=== PATIENT | female | born 1970 | race American Indian/Alaskan Native ===

== ENCOUNTER → 2018-04-28 | Outpatient (CLI) | payer OTHER | END | disposition home or self-care (01) | LOC: PLD 15:05 → LAB SHORT 15:05 | DX: C53.9 Malignant neoplasm of cervix uteri, unspecified (principal); C54.1 Malignant neoplasm of endometrium | CPT/HCPCS: 88305 ==

== ENCOUNTER 2018-12-21 07:16 | Day surgery (SDC) | payer OTHER ==
[2018-12-20 10:25] LABS: BASOPHILS ABSOLUTE AUTO 0.01 K/mm3 (0.00-0.23); BASOPHILS PERCENT AUTO 0 % (0-2); Hemoglobin 6.9 g/dL (11.5-16.0); LYMPHOCYTES ABSOLUTE AUTO 0.38 K/mm3 (0.84-5.20); LYMPHOCYTES PERCENT AUTO 12 % (21-46); MONOCYTES ABSOLUTE AUTO 0.22 K/mm3 (0.16-1.47); MONOCYTES PERCENT AUTO 7 % (4-13); Mean Corpuscular HGB 27.3 pg (26.0-34.0); Mean Platelet Volume 9.6 fL (9.1-12.4); Platelet Count 131 K/mm3 (150-400); RDW Coefficient Variation 18.7 % (11.7-14.2); RDW Standard Deviation 62.3 fL (35.1-46.3); Red Blood Cell Count 2.53 M/mm3 (3.80-5.20); White Blood Cell Count 3.16 K/mm3 (4.00-11.30)
[2018-12-20 10:44] LABS: EOSINOPHILS PERCENT AUTO 0 % (0-6); IMMATURE GRAN ABSOLUTE AUTO 0.01 K/mm3 (0.00-0.10); IMMATURE GRAN PERCENT AUTO 0 % (0-1); Mean Corpuscular Volume 91 fL (80-100); NEUTROPHILS ABSOLUTE AUTO 2.54 K/mm3 (1.96-9.15); NEUTROPHILS PERCENT AUTO 80 % (41-73)
[2018-12-20 11:15] LABS: Alanine Aminotransfer (ALT/SGP 23 U/L (12-78); Albumin, Blood 2.5 g/dL (3.4-5.0); Albumin/Globulin Ratio 0.5 (0.8-1.8); Alk Phos 83 U/L (50-136); Anion Gap 10 mmol/L (6-16); Aspartate Aminotrans (AST/SGOT 30 U/L (12-37); Bilirubin, Total 0.4 mg/dL (0.1-1.0); Blood Urea Nitrogen 6 mg/dL (8-24); Bun/Creatinine Ratio 12.1 (12.0-20.0); CO2, Blood 23 mmol/L (21-32); Calcium, Blood 8.4 mg/dL (8.5-10.1); Chloride, Blood 104 mmol/L (98-108); Globulin, Blood 5.5 g/dL (2.2-4.0); Glomerular Filtration Rate >60 (60-); Glucose, Blood 123 mg/dL (70-99); Potassium, Blood 3.5 mmol/L (3.5-5.5); Sodium, Blood 137 mmol/L (136-145)
[2018-12-21] MEDS ORDERED: Ondansetron Odt8 MG PO (08:52)
[2018-12-21] MEDS ORDERED: MEDR10 PO (08:53)
[2018-12-21] MEDS ORDERED: OXYC5 PO (08:53)
[2018-12-21] MEDS ORDERED: LEVO750 PO (14:51)
== END 2018-12-21 16:47 | disposition home or self-care (01) ==
LOC: ATC 07:16 → EDSTATUS 13:30 → ATC 16:47
PROVIDERS: Internal Medicine Hematology & Oncology
DX: C53.8 Malignant neoplasm of overlapping sites of cervix uteri (principal); C78.7 Secondary malignant neoplasm of liver and intrahepatic bile duct; D63.0 Anemia in neoplastic disease
CPT/HCPCS: 36415; 36430; 80053; 85025; 86850; 86900; 86901; 86923; J7050; P9016

== ENCOUNTER 2019-03-10 06:03 | Day surgery (SDC) | payer OTHER ==
[~2019-03-10] VITALS: Ht 160 cm; Wt 111.0 kg
[~2019-03-10 06:03] MED LIST: LEVO750 PO; MEDR10 PO; OXYC5 PO; Ondansetron Odt8 MG PO; POTA8 PO
--- NOTE | 2019-03-10 07:06 | NUR ---
Ambulatory in Day Surgery Surgical site prepped with 2% Chlorhexidine cloth wipe. History, Chart, Medications and Allergies reviewed before start of procedure.Lungs clear T/O to Auscultation. Patient reports completing Chlorhexadine shower X2 prior to admission to hospital.Patient confirms NPO status and agrees with scheduled surgery. Patient States Post-Procedure ride home has been arranged.
--- NOTE | 2019-03-10 08:34 | NUR ---
Ambulatory in Day Surgery Surgical site prepped with 2% Chlorhexidine cloth wipe. History, Chart, Medications and Allergies reviewed before start of procedure.Lungs clear T/O to Auscultation. Patient States Post-Procedure ride home has been arranged.GLASSES TO PACU.
--- NOTE | 2019-03-10 09:03 | NUR ---
REPORT FROM [facility] PACU/ RN. DRESSING TO RIGHT CHEST CDI. MEDIPORT ACCESSED. PT C/O OF PAIN. HAS PAIN MEDS AT HOME. SPOKE TO DR PITTS. NEW ORDERS FOR PAIN MEDS RECEIVED AND ORDERED VIA COMPUTER. PT PROVIDED FOOD AND FLUID. WILL MANAGE PAIN, VS, DISCHARGE.
--- NOTE | 2019-03-10 09:35 | NUR ---
Patient up to Ambulate independently. Gait steady. Discharge instructions reviewed with patient. Patient verbalizes understanding. Copy given to patient to take home. Patient States Post-Procedure ride home has been arranged. Discharged via wheelchair to private car for ride home. PROVIDED EDUCATION REGARDING MEDIPORT INFORMATION. PROVIDED EMOTIONAL SUPPORT. ALL BELONINGS RETURNED TO PATIENT.
== END 2019-03-10 23:04 | disposition home or self-care (01) ==
LOC: ORSCMMR 06:03 → ORD 07:30 → ORSCMMR 07:30
PROVIDERS: Surgery
PROC: B5131ZA Fluoroscopy of Right Jugular Veins using Low Osmolar Contrast, Guidance (ICD-10-PCS; principal; 2019-03-10 07:30)
PROC: 05HM33Z Insertion of Infusion Device into Right Internal Jugular Vein, Percutaneous Approach (ICD-10-PCS; principal; 2019-03-10 07:30)
DX: C53.8 Malignant neoplasm of overlapping sites of cervix uteri (principal); C78.7 Secondary malignant neoplasm of liver and intrahepatic bile duct; R30.0 Dysuria
CPT/HCPCS: 77001; 81001; 87077; 87086; 87186; C1788; J0690; J1100; J1642; J2250; J2405; J2704; J3010; J7120

== ENCOUNTER → 2019-03-23 | Outpatient (CLI) | payer OTHER ==
[2019-03-23 11:38] LABS: Source, Urine Clean Catch
[2019-03-23 11:55] LABS: Bilirubin, Urine Neg (Neg); Blood, Urine 5+ (Neg); Glucose Qualitative, Urine Neg (Neg); Ketones, Urine 1+ (Neg); Leukocyte Esterase, Urine 3+ (Neg); Nitrite, Urine Neg (Neg); Protein, Urine 3+ (Neg); Specific Gravity, Urine 1.025 (1.003-1.022); Urobilinogen, Urine NORM (Normal)
[2019-03-23 11:57] LABS: Appearance, Urine Cloudy (Clear); Color, Urine Yellow (P-Yellow)
[2019-03-23 12:02] LABS: Red Blood Cells, Urine TNTC /hpf (0-2); White Blood Cells, Urine TNTC /hpf (0-5)
[2019-03-23 12:03] LABS: Bacteria Many /hpf; Squamous Epithelial Cells Rare /hpf (Few)
[2019-03-23 12:04] LABS: Mucus Light (0-Heavy)
== END | disposition home or self-care (01) ==
LOC: LAB 11:36 → LAB SHORT 11:36 → LAB FUT 03-22 18:20
PROVIDERS: Internal Medicine Hematology & Oncology
DX: C53.9 Malignant neoplasm of cervix uteri, unspecified (principal); C54.1 Malignant neoplasm of endometrium; C78.7 Secondary malignant neoplasm of liver and intrahepatic bile duct; D70.1 Agranulocytosis secondary to cancer chemotherapy; T45.1X5A Adverse effect of antineoplastic and immunosuppressive drugs, initial encounter; D69.6 Thrombocytopenia, unspecified; D64.9 Anemia, unspecified; E87.6 Hypokalemia; N39.0 Urinary tract infection, site not specified; R30.0 Dysuria; R50.9 Fever, unspecified; R63.5 Abnormal weight gain
CPT/HCPCS: 81001; 87086

== ENCOUNTER → 2019-05-12 | Outpatient (CLI) | payer OTHER ==
[2019-05-12 11:48] LABS: BASOPHILS ABSOLUTE AUTO 0.01 K/mm3 (0.00-0.23); BASOPHILS PERCENT AUTO 0 % (0-2); EOSINOPHILS PERCENT AUTO 0 % (0-6); Hematocrit 34.2 % (33.0-51.0); Hemoglobin 10.7 g/dL (11.5-16.0); IMMATURE GRAN ABSOLUTE AUTO 0.02 K/mm3 (0.00-0.10); IMMATURE GRAN PERCENT AUTO 0 % (0-1); LYMPHOCYTES ABSOLUTE AUTO 0.67 K/mm3 (0.84-5.20); LYMPHOCYTES PERCENT AUTO 8 % (21-46); MONOCYTES ABSOLUTE AUTO 0.37 K/mm3 (0.16-1.47); MONOCYTES PERCENT AUTO 5 % (4-13); Mean Corpuscular HGB 29.4 pg (26.0-34.0); Mean Corpuscular HGB Conc 31.3 g/dL (31.5-36.5); Mean Corpuscular Volume 94 fL (80-100); Mean Platelet Volume 9.1 fL (9.1-12.4); NEUTROPHILS ABSOLUTE AUTO 6.88 K/mm3 (1.96-9.15); NEUTROPHILS PERCENT AUTO 87 % (41-73); Platelet Count 374 K/mm3 (150-400); RDW Coefficient Variation 17.4 % (11.7-14.2); RDW Standard Deviation 60.6 fL (35.1-46.3); Red Blood Cell Count 3.64 M/mm3 (3.80-5.20); White Blood Cell Count 7.95 K/mm3 (4.00-11.30)
== END | disposition home or self-care (01) ==
LOC: LAB 11:29 → LAB SHORT 11:29
PROVIDERS: Registered Nurse Oncology
DX: D70.1 Agranulocytosis secondary to cancer chemotherapy (principal); T45.1X5A Adverse effect of antineoplastic and immunosuppressive drugs, initial encounter
CPT/HCPCS: 85025

== ENCOUNTER 2020-01-11 15:03 | Inpatient (IN) | payer OTHER ==
[~2020-01-11] VITALS: Ht 162.6 cm; Wt 95.8 kg
[~2020-01-11 15:03] MED LIST changes: +OXYC10TA19 PO; -OXYC5 PO
[2020-01-11] MEDS ORDERED: DEXA4 PO (15:43)
[2020-01-11 16:42] LABS: Beta HCG, Quantitative, Serum 133 mIU/mL (0-3); Troponin I <0.015 ng/mL (0.000-0.040)
--- NOTE | 2020-01-11 18:20 | NUR ---
ED Palliative Care Consult Spoke with Dr Mckinney and discussed case. Pt has cervical cancer with yamileth. Pt would benefit from Palliative Care consult to discuss goals of care. Pt resting on gurny upon arrival. Pt spouse Virgil at bedside. Spouse appears axious and mildly agitated due to Pt's cancer spreading. Pt reports 7/10 pain in her abdomen and back. Engaged in therapeutic discussion regarding goals of care. Listened as Pt reports not tolerating treatment well. Pt and spouse express frustration regarding treatment being switched. They report initial treatment was shrinking tumors and then was switched to new treatment that spouse describes as "making it worse". Answered questions and validated concerns. Pt reports leaning towards wanting to focus on quality and comfort versus treatment but is unsure at this time. Discussed the importance of speaking with Dr Obregon regarding options for treatment in order to make a well informed decision. Educated on hospice as an option if she elects to no longer seek treatment. Educated on hospice philosophy. Pt expresses appreciation of conversation and is agreeable for continued visits. Provided Palliative Care contact information. Reported Pt's pain to ED RN. Palliative Care will F/U for supportive and therapeutic visits.
[2020-01-11 20:19] LABS: International Normalized Ratio 1.21; Prothrombin Time Results 12.8 Sec (9.7-11.5)
[2020-01-12 01:40] LABS: Source, Urine Clean Catch
[2020-01-12 01:44] LABS: Blood, Urine 5+ (Neg); Glucose Qualitative, Urine Neg (Neg); Ketones, Urine 2+ (Neg); Leukocyte Esterase, Urine 2+ (Neg); Nitrite, Urine Pos (Neg); Protein, Urine 3+ (Neg); Urobilinogen, Urine 3+ (Normal)
[2020-01-12 01:48] LABS: Appearance, Urine Hazy (Clear); Bilirubin, Urine 2+ (Neg); Color, Urine Amber (P-Yellow)
[2020-01-12 01:51] LABS: Bacteria Many /hpf; Squamous Epithelial Cells Few /hpf (Few); White Blood Cells, Urine TNTC /hpf (0-5)
[2020-01-12 04:02] LABS: BASOPHILS ABSOLUTE AUTO 0.06 K/mm3 (0.00-0.23); BASOPHILS PERCENT AUTO 0 % (0-2); EOSINOPHILS PERCENT AUTO 0 % (0-6); Hematocrit 28.1 % (33.0-51.0); Hemoglobin 8.6 g/dL (11.5-16.0); IMMATURE GRAN ABSOLUTE AUTO 0.24 K/mm3 (0.00-0.10); IMMATURE GRAN PERCENT AUTO 1 % (0-1); LYMPHOCYTES ABSOLUTE AUTO 1.45 K/mm3 (0.84-5.20); LYMPHOCYTES PERCENT AUTO 5 % (21-46); MONOCYTES ABSOLUTE AUTO 1.95 K/mm3 (0.16-1.47); MONOCYTES PERCENT AUTO 7 % (4-13); Mean Corpuscular HGB 27.3 pg (26.0-34.0); Mean Corpuscular HGB Conc 30.6 g/dL (31.5-36.5); Mean Corpuscular Volume 89 fL (80-100); Mean Platelet Volume 9.1 fL (9.1-12.4); NEUTROPHILS ABSOLUTE AUTO 25.93 K/mm3 (1.96-9.15); NEUTROPHILS PERCENT AUTO 88 % (41-73); NRBC ABSOLUTE 0.03 K/mm3 (0.00-0.02); NRBC Auto 0.1 /100 WBC (0.0-0.2); Platelet Count 369 K/mm3 (150-400); RDW Coefficient Variation 21.8 % (11.7-14.2); RDW Standard Deviation 69.8 fL (35.1-46.3); Red Blood Cell Count 3.15 M/mm3 (3.80-5.20); White Blood Cell Count 29.63 K/mm3 (4.00-11.30)
[2020-01-12 04:26] LABS: Percent Saturation 13.6 % (15.0-50.0)
[2020-01-12 04:27] LABS: Alanine Aminotransfer (ALT/SGP 147 U/L (12-78); Albumin, Blood 2.2 g/dL (3.4-5.0); Anion Gap 10 mmol/L (6-16); Aspartate Aminotrans (AST/SGOT 571 U/L (12-37); Blood Urea Nitrogen 11 mg/dL (8-24); Bun/Creatinine Ratio 14.3 (12.0-20.0); CO2, Blood 20 mmol/L (21-32); Calcium, Blood 7.8 mg/dL (8.5-10.1); Chloride, Blood 104 mmol/L (98-108); Creatinine, Blood 0.77 mg/dL (0.40-1.00); Glomerular Filtration Rate >60 (60-); Glucose, Blood 118 mg/dL (70-99); Magnesium, Blood 2.1 mg/dL (1.6-2.4); Potassium, Blood 4.9 mmol/L (3.5-5.5); Sodium, Blood 134 mmol/L (136-145)
--- NOTE | 2020-01-12 05:27 | NUR ---
SHIFT SUMMARY PT ARRIVED FROM ED APPROXIMATELY @ 2029; PT WAS ABLE TO STAND AND PIVOT SELF TO BED; A&O X4; SPOUSE AT BEDSIDE FOR BRIEF TIME TO DROP OFF BELONGINGS; COMPLIANT W/ CARE AND CALLS APPROPRIATELY; VSS; SINUS TACH NOTED ON TELE; ELEVATES W/ AMBULATION; DENIES CHEST PAIN; O2 SATS >93 ON RA; PT C/O 8 OF 10 PAIN IN ABDOMEN AND BACK; RELIEF MEASURES OFFERED AND PT MEDICATED PER EMAR W/ ROXICODONE; PT INDEPENDENT TO BATHROOM; DARK URINE NOTED IN COLLECTION HAT; CALL LIGHT IN REACH; BED IN LOWEST POSITION; WILL MONITOR UNTIL HAND OFF TO DAY SHIFT RN.
[2020-01-12 05:34] LABS: Albumin/Globulin Ratio 0.6 (0.8-1.8); Alk Phos 571 U/L (50-136); Bilirubin, Total 5.7 mg/dL (0.1-1.0); Globulin, Blood 3.8 g/dL (2.2-4.0)
--- NOTE | 2020-01-12 09:15 | NUR ---
NOTIFIED BY TELE DISPENSARY TECHNICIAN THAT HEART RATE INCREASED TO 120 AT THIS TIME.
--- NOTE | 2020-01-12 09:48 | NUR ---
Dr. Alegria called to notify of lactic acid 2.8; message left on cell phone. She is here now with the patient, and notified of the lactic level.
--- NOTE | 2020-01-12 11:06 | NUR ---
PALLIATIVE CARE CONSULT, DISCUSSED PALLIATIVE CARE WITH PATIENT WHO WAS CONSULTED YESTERDAY WITH ERICK CHRISTIAN. AFTER SPEAKING WITH THE PATIENT IT SEEMS HER FAMILY COULD USE MORE SUPPORT, SPECIFICALLY HER WHO SHE STATES IS STRUGGLING TO COPE WITH HER CANCER DIAGNOSIS. PT ASKED FOR RESOURCES FOR FAMILY SUPPORT, GROUP THERAPY OR COUNSELING OF SOME KIND. THIS WAS PASSED ON TO ERICK CHRISTIAN WITH PALLIATIVE CARE WHOM WILL VISIT THE PT LATER TODAY.
--- NOTE | 2020-01-12 13:53 | NUR ---
Pt resting in bed upon arrival. Engaged in therapeutic listening as Pt expresses frustrations regarding spouse's behavior yesterday. She states her has not processed her condition since finding out about her cancer and yesterday things hit home for him. Validated concerns and answered questions. Discussed plan of care and the importance of planning for the future as the cancer takes its coarse. Pt verbalizes understanding and plans to discuss further with Dr Obregon regarding treatment options. She will then decide is continued treatment is beneficial or transition to hospice. Continued therapeutic listening. Pt expresses appreicaiton of visit and reports no other concerns at this time. Provided Pt with a list of cancer support groups she and her spouse may attend. Palliative Care will remain available.
--- NOTE | 2020-01-12 17:56 | NUR ---
SHIFT SUMMARY PT SPOKE WITH DR HALE THIS MORNING ABOUT HER PLAN. AT THIS POINT IS UNSURE IF THE ELEVATED LAB WORK IS DUE TO CANCER SPREADING OR AN INFECTION AT THIS POINT SHE IS RECEIVING [facility] AND WAITING FOR BLOOD CULTURE RESULTS. THE PT IS UNDERSTANDING OF THE CURRENT PLAN AND CONFIRMED THIS VERBALLY. PT REPORTED HER EYES SEEMING MORE YELLOW THIS AFTERNOON, A QUICK VISUAL ASSESSMENT CONFIRMED THAT THEY ARE SLIGHTLY MORE YELLOW TINTED WHEN COMPARED TO THIS MORNING. DR HALE WAS NOTIFIED, AND WAS AWARE AND CONFIRMED IT WAS EXPECTED DUE TO HER ELEVATED LIVER FUNCTION AND BILIRUBIN. PT VISITED WITH PALLIATIVE CARE TODAY. PT ALSO EXPLAINED THAT SHE FEELS HER HAS BEEN A BIT OVERBEARING REGARDING HER CANCER DIAGNOSIS AND SHE STATED MULTIPLE TIMES "HE NEEDS TO SPEAK WITH SOMEONE, HE NEEDS THERAPY OR SOMETHING." ERICK SMITH MENTIONED THIS TO PALLIATIVE CARE AND REQUESTED THAT RESOURCES BE FOUND FOR CANCER SUPPORT, FAMILY SUPPORT FOR PT AND HER FAMILY MEMBERS. PT HAS FLAVIO HOSE, AND HAS INDEPENDENTLY USING THE BATHROOM THIS AFTERNOON/EVENING; ERICK SMITH WAS WITH HER MULTIPLE TIMES DURING THE MORNING TO ESCORT HER TO THE BATHROOM AND SHE WAS NOT SHOWING WEAKNESS, AND WAS WITH STEADY GAIT. PAIN HAS BEEN MANAGED TODAY WITH OXYCODONE. PT WAS ADVANCED TO FULL LIQUID DIET AT LUNCH TIME AND HAS TOLERATED THIS WELL. PT DENIED NAUSEA ALL DAY.
[2020-01-12 21:26] LABS: Vancomycin, Trough 20.7 ug/mL (5.0-10.0)
--- NOTE | 2020-01-13 06:07 | NUR ---
SHIFT SUMMARY PT A&O X4; DENIES CHEST PAIN; VSS; NSR NOTED ON TELE; HR INCREASE W/ BRP; O2 SATS >93 ON RA; PT STATES SHE HAS SOB W/ AMBULATION; PT SLEPT SEVERAL HOURS THIS SHIFT; JAUNDICE APPEARANCE GREATER THAN PREVIOUS SHIFT, YELLOW SCLERA NOTED; ABX ADMINISTERED PER EMAR; PAIN MANAGED W/ PO ROXYCODONE; CALL LIGHT IN REACH; BED IN LOWEST POSITION; WILL CONTINUE TO MONITOR CLOSELY UNTIL HAND OFF TO DAY SHIFT RN.
[2020-01-13 10:20] LABS: BASOPHILS ABSOLUTE AUTO 0.08 K/mm3 (0.00-0.23); BASOPHILS PERCENT AUTO 0 % (0-2); EOSINOPHILS ABSOLUTE AUTO 0.02 K/mm3 (0.00-0.68); EOSINOPHILS PERCENT AUTO 0 % (0-6); Hematocrit 27.1 % (33.0-51.0); Hemoglobin 8.4 g/dL (11.5-16.0); IMMATURE GRAN ABSOLUTE AUTO 0.28 K/mm3 (0.00-0.10); IMMATURE GRAN PERCENT AUTO 1 % (0-1); LYMPHOCYTES ABSOLUTE AUTO 1.03 K/mm3 (0.84-5.20); LYMPHOCYTES PERCENT AUTO 4 % (21-46); MONOCYTES ABSOLUTE AUTO 1.77 K/mm3 (0.16-1.47); MONOCYTES PERCENT AUTO 6 % (4-13); Mean Corpuscular HGB 27.8 pg (26.0-34.0); Mean Corpuscular Volume 90 fL (80-100); Mean Platelet Volume 9.3 fL (9.1-12.4); NEUTROPHILS ABSOLUTE AUTO 25.44 K/mm3 (1.96-9.15); NEUTROPHILS PERCENT AUTO 89 % (41-73); NRBC ABSOLUTE 0.08 K/mm3 (0.00-0.02); NRBC Auto 0.3 /100 WBC (0.0-0.2); Platelet Count 341 K/mm3 (150-400); RDW Coefficient Variation 22.3 % (11.7-14.2); RDW Standard Deviation 72.2 fL (35.1-46.3); Red Blood Cell Count 3.02 M/mm3 (3.80-5.20); White Blood Cell Count 28.62 K/mm3 (4.00-11.30)
[2020-01-13 10:40] LABS: Alanine Aminotransfer (ALT/SGP 193 U/L (12-78); Albumin/Globulin Ratio 0.5 (0.8-1.8); Alk Phos 579 U/L (50-136); Anion Gap 9 mmol/L (6-16); Aspartate Aminotrans (AST/SGOT 631 U/L (12-37); Bilirubin, Total 6.6 mg/dL (0.1-1.0); Blood Urea Nitrogen 11 mg/dL (8-24); Bun/Creatinine Ratio 14.4 (12.0-20.0); CO2, Blood 20 mmol/L (21-32); Calcium, Blood 8.2 mg/dL (8.5-10.1); Chloride, Blood 102 mmol/L (98-108); Creatinine, Blood 0.76 mg/dL (0.40-1.00); Globulin, Blood 3.9 g/dL (2.2-4.0); Glomerular Filtration Rate >60 (60-); Glucose, Blood 136 mg/dL (70-99); Potassium, Blood 4.6 mmol/L (3.5-5.5); Sodium, Blood 131 mmol/L (136-145); Total Protein, Blood 5.9 g/dL (6.4-8.2)
--- NOTE | 2020-01-13 11:40 | NUR ---
ASSUMED CARE OF PT THIS AM, RECEIVED REPORT FROM ERICK KEYES. PT HAS BEEN ALERT AND ORIENTED, INDEPENDENT IN ROOM, SON AT BEDSIDE. PT CONTINUES TO RECEIVED POTASSIUM CHLORIDE INFUSION AND ABX INFUSION WITHOUT DIFFICULTY. PALLIATIVE CARE CONSULT IN PROGRESS AT THIS TIME.
--- NOTE | 2020-01-13 13:56 | NUR ---
Several supportive visits with Pt today. Spoke with AMMONIUM NITRATE NEUTRALIZER Lynn from Dr Obregon office today. Lynn reports having conversations with Dr Obregon and given to extensive metastatic disease to the liver no other treatment options are available and hospice should be considered. Engaged in therapeutic discussion regarding prognosis and encouraged Pt to express fears and concerns. Educated on hospice and comfort care philosophy with V/U made by Pt. Pt would like to start comfort measures today. Discussed hospice agencies to choose from with Pt choosing [facility]. Offered therapeutic listening as Pt reports no concerns regarding dying and her children. Pt does report concerns regarding her spouse Virgil. Pt reports Virgil has not been understanding or supportive to her since being diagnosed with cancer. Pt reports 's demeanor has changed over the last couple of days and has been more agitated. Pt reports has been causing her stress and does not feel she can deal with him at this time. Dr Alegria in to examine Pt and to discuss plan of care. Dr Alegria answers Pt's questions and is agreeable with decision for comfort care and hospice. Continued therapeutic listening and answered questions. Pt reports children have offered to her to move in with them. Pt tearful at times and this RN offered emotional support. Pt expresses appreciation of visit. Placed comfort care order, comfort care order set, and discontinued maintenance medications per V/O from Dr Alegria. Continued IV antibiotic Zosyn per Dr Alegria until urine culture results. Called Pt's spouse Virgil per request from Pt. Attempted therapeutic conversation and updated plan of care including Pt's choice for comfort care and hospice. Virgil becomes very agitated and does not allow this RN continued conversation with constant interuptions. Virgil states "your just going to let her then"? Attempted to educate on philosophy but Virgil continues to interupt conversation. Virgil hangs up phone. Received called back from Virgil a few minutes later asking to speak with her. Instructed Virgil this RN would find out if Pt is taking calls and Virgil becomes agitated again and states "never mind" and hangs up phone again. Spoke with [facility] Lialorena Johnson and reported Pt's decision for [facility]. Spoke with Forming And Assembling Supervisor Mary, discussed case and concerns. Pt may benefit from remaining in the hospital over the weekend due to family dynamics. Palliative Care will remain available.
--- NOTE | 2020-01-13 14:15 | NUR ---
PT TRANSFERED TO MEDICAL DEPT, REPORT GIVEN TO ERICK CRESPO.
--- NOTE | 2020-01-13 19:43 | NUR ---
SHIFT SUMMARY: NO ACUTE EVENTS SINCE TRANSFER. SPOUSE VISITED FOR < 5 MINUTES THIS EVENING, LEFT ABRUPTLY, APPEARED ANGRY. INFORMED PATIENT THAT IF SPOUSE UPSETS HER AND SHE WANTS HIM TO LEAVE TO CALL RN AND NURSING WILL ASK HIM TO LEAVE OR GET SECURITY INVOLVED IF NECESSARY. C/O ABD PAIN, MEDICATED PER EMAR. DIET CHANGED TO REGULAR, APPETITE POOR. DECLINED TO WEAR FLAVIO HOSE, STATED THEY CAUSE PAIN. SON MARISSA AT BEDSIDE, IS SPENDING THE NIGHT.
[2020-01-14 05:41] LABS: BASOPHILS ABSOLUTE AUTO 0.07 K/mm3 (0.00-0.23); BASOPHILS PERCENT AUTO 0 % (0-2); EOSINOPHILS ABSOLUTE AUTO 0.05 K/mm3 (0.00-0.68); EOSINOPHILS PERCENT AUTO 0 % (0-6); Hematocrit 27.4 % (33.0-51.0); Hemoglobin 8.5 g/dL (11.5-16.0); IMMATURE GRAN ABSOLUTE AUTO 0.24 K/mm3 (0.00-0.10); IMMATURE GRAN PERCENT AUTO 1 % (0-1); LYMPHOCYTES ABSOLUTE AUTO 1.17 K/mm3 (0.84-5.20); LYMPHOCYTES PERCENT AUTO 5 % (21-46); MONOCYTES ABSOLUTE AUTO 1.92 K/mm3 (0.16-1.47); MONOCYTES PERCENT AUTO 8 % (4-13); Mean Corpuscular HGB 27.4 pg (26.0-34.0); Mean Corpuscular Volume 88 fL (80-100); Mean Platelet Volume 9.1 fL (9.1-12.4); NEUTROPHILS ABSOLUTE AUTO 21.42 K/mm3 (1.96-9.15); NEUTROPHILS PERCENT AUTO 86 % (41-73); NRBC ABSOLUTE 0.17 K/mm3 (0.00-0.02); NRBC Auto 0.7 /100 WBC (0.0-0.2); Platelet Count 342 K/mm3 (150-400); RDW Coefficient Variation 22.7 % (11.7-14.2); RDW Standard Deviation 71.7 fL (35.1-46.3); White Blood Cell Count 24.87 K/mm3 (4.00-11.30)
[2020-01-14 06:05] LABS: Alanine Aminotransfer (ALT/SGP 196 U/L (12-78); Albumin, Blood 1.9 g/dL (3.4-5.0); Albumin/Globulin Ratio 0.5 (0.8-1.8); Alk Phos 663 U/L (50-136); Anion Gap 9 mmol/L (6-16); Aspartate Aminotrans (AST/SGOT 577 U/L (12-37); Bilirubin, Total 7.2 mg/dL (0.1-1.0); Blood Urea Nitrogen 12 mg/dL (8-24); Bun/Creatinine Ratio 14.8 (12.0-20.0); CO2, Blood 19 mmol/L (21-32); Calcium, Blood 8.1 mg/dL (8.5-10.1); Chloride, Blood 102 mmol/L (98-108); Creatinine, Blood 0.81 mg/dL (0.40-1.00); Globulin, Blood 3.8 g/dL (2.2-4.0); Glomerular Filtration Rate >60 (60-); Glucose, Blood 104 mg/dL (70-99); Potassium, Blood 4.5 mmol/L (3.5-5.5); Sodium, Blood 130 mmol/L (136-145); Total Protein, Blood 5.7 g/dL (6.4-8.2)
--- NOTE | 2020-01-14 17:07 | NUR ---
Pt resting just had a dose of medication. Patients children at bedside. They had several questions about hospice care plan. They are awaiting a call from their landlord on letting her stay there. Advied we would with their permission an dpatients speak with the landlord if that would help. Advised if pt declines rapitly may not transition her home. They are homeing to bring her home. Advised them on maond care managers will help them pick a company and implment a plan. Review of hospice and both companies. Supportive conversation with children. They both network intelligence analyst and have opposite shifts so they can care for their mother. Suggest a reed for patient upon discharge for comfort and skin protection. was in and out today. He is anxious. will continue supportive visits. Frankie may need a day or tow to set up their jobs and home.
--- NOTE | 2020-01-14 19:24 | NUR ---
Shift Summary Family has been at the bedside throughout the day. There was a moment where patient requested pain meds and asked patient to not take Morphine; however, patient refused to listen to stating she needed it for pain. Morphine given and have been medicating per EMAR for pain and nausea. Otherwise, no new comcerns today. Report given to oncoming Rn.
--- NOTE | 2020-01-15 14:12 | NUR ---
Pt resting will review of needs with nursing. Dr garcia saw family will need support with dischareg plan.
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
--- NOTE | 2020-01-15 17:15 | NUR ---
Shift Summary Patient has had many family visiting today. Transferred from room Med 325 to Med 308 to accomodate for them. Up to bathroom x 1-2 assist c FWW. Patient appears increasingly weak and took over one hour each way from bed to bathroom and back to bed. Required 2 max from toilet to standing. While walking towards bed with FWW, patient c/o being unable to walk but eventually pushed through and made it to the bed exhausted. Patient has been tearful today d/t situation and lack of understanding from spouse. Son (Andrei) expressed concerns RE discharge plans to home with Andrei stating this may not be the best option considering spouse's (Virgil) unaccepting of patient's wishes. Andrei also expressed interest in having patient stay here for hospice care. These concerns were relayed to Jaelyn (Palliative RN) who discussed with Andrei available options (see Palliative Care note). Medicated for 6-7/10 pain per EMAR with moderatly good relief x 3. Increased Roxanol dose from 10 mg to 15 mg per patient request. This RN offered reed catheter or using bedside commode instead of walking to the bathroom d/t increase weakness and risk for fall; however patient refused. Explained that offer will remain available if patient reconsiders. No c/o nausea this shift. PO intake is extremely minimal. Will continue to monitor and report to oncoming RN.
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
--- NOTE | 2020-01-16 05:40 | NUR ---
SHEAR OPERATOR HELPER SUMMARY Patient slept well and appeared much more relaxed and comfortable last evening sitting up in recliner visiting with her son Andrei and his Judith who both spent the night with her. 15mg Roxynol given per her request around 2200 when Alee went to bed. Refused repositioning at least twice for this RN last night. Patient only comfortable when HOB up around 35 - 40 degrees. Patient verbalized understanding and agreement regarding her inability to safely ambulate (even with assist to bathroom)
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
--- NOTE | 2020-01-16 13:58 | NUR ---
while giving iv abx dr nagy'd order, since med had already been accessed asked if ok to start and give, she said it was, pt doing well with family in rm visiting, will continue to monitor and treat
--- NOTE | 2020-01-16 16:48 | NUR ---
Spiritual care note: I met with Alee's sons at bedside. Both appear attentive and loving. Brayden said little and was unable to stay awake long. She smiled broadly when I complimented her on raising two good men. Provided senior genetic counselor to sons and some nearing education. Encouraged self-care. Sons appeared relaxed and appreciaitve. They did not speak to me about recent problems with pt's SO. Brought items to make their stay more comfortable. Family very grateful for safe environment and quiet space for pt. She appears quite jaundiced and very frail. Alee was not very lucid at all and could not participate in conversation. She denied pain. She also declined prayer. Sons thought this was unusual, but we decided to honor her wishes for now. I will continue to monitor in coming days.
--- NOTE | 2020-01-16 18:23 | NUR ---
asked to be allowed to use the toilet vs bsc, used a wc and three people but she was able to use the toilet, back in bed sitting on side talking to family, call light in reach, iv covered for comfort and ease maint, medicated as prescribed, only two calls for pain med, cooperative but drowsy, will continue to monitor until share bsr with noc nurse and pt.
--- NOTE | 2020-01-16 19:43 | NUR ---
PATIENT MEDICATED PER EMAR FOR PAIN, SHE DENIES NAUSEA. NEW PEPSI PROVIDED TO PATIENT. FAMILY AT BEDSIDE.
--- NOTE | 2020-01-17 04:05 | NUR ---
SHIFT SUMMARY PATIENT ALERT AND ORIENTED. CHILDREN HAVE BEEN AT BEDSIDE ALL NIGHT. THEY HAVE HAD MINIMAL NEEDS. PATIENT MEDICATED FOR PAIN PER EMAR. IV PATENT AND FLUSHED. BED IN LOWEST POSITION WITH WHEELS LOCKED. CALL LIGHT WITHIN REACH.
--- NOTE | 2020-01-17 09:34 | NUR ---
Pt resting in bed with her eyes closed. Pt briefly opens eyes then quickly closes them. Pt appears significantly lethargic, somnolent, and jaundice. Pt minimally responds verbally. Spoke with Bedside ERICK Bailey and discussed case. Palliative Care will remain available for symptom management and supportive visits.
--- NOTE | 2020-01-17 13:04 | NUR ---
Spiritual care note: Son, Andrei, and I awakened Alee to ask two questions about her spouse, Virgil. Once aroused, Alee acknowleded that she does not want Virgil making medical decisions on her behalf and she does not want him present in room. She was slow to respond, but appeared lucid. I asked her these questions several ways. Her answers were consistent. I provided assistant counsel and comfort to Andrei who was relieved and appreciaitve. Supported and affirmed his love and care for his mom and complimented him on his devotion. He appears to have accepted Alee's path and states he just wants him mom to in peace. Alee quickly fell back into a comfortable sleep. She appears well cared-for by nursing. No other concerns were presented. I will remain available.
--- NOTE | 2020-01-17 13:23 | NUR ---
Spoke with Pt Advocate [place], discussed case and concerns. Pt spouse has been calling expressing concerns and is wanting to come visit Pt when Pt's children are not present. Joint visit with [place]. Pt resting in bed with her eyes closed. Discussed spouses wishes with son Andrei. Andrei reports Vehicle Dismantlerrae Magdaleno just visited with Pt and discussed her wishes. Pt reports not wanting her Virgil visiting her, does not want to have any information, and does not want to have any decision making capabilities. Spoke with Vehicle Dismantlerrae Magdaleno who confirms this conversation took place and these are Pt's wishes. Placed Ethics Consult per Dr Arrington. Spoke with Eladio Thakur from Ethics and discussed case. Pt has stated her intention, wishes, and this should be honored. Any information given to Pt's spouse could be considered HIPPA violation and should not be allowed to visit Pt. Palliative Care will remain available for symptom management and supportive visits.
--- NOTE | 2020-01-17 16:14 | NUR ---
PATIENT IS ON COMFORT CARE. SHE HAS BEEN TIRED AND SLEEPING MOST OF THE SHIFT. PATIENT MEDICATED TWICE THIS SHIFT FOR COMPLAINTS OF PAIN WITH EFFECTIVE RESULTS. PATIENT IS MINIMALLY VERBAL AND FALLS TO SLEEP BEFORE BEING ABLE TO ANSWER A QUESTION. FAMILY HAS BEEN AT THE BED SIDE T/O THE DAY. PER PATIENT REQUEST, NOT ALLOWED TO COME VISIT. WILL CONTINUE TO MONITOR AND PROVIDE CARE NEEDED.
--- NOTE | 2020-01-17 22:23 | NUR ---
2206 PT DENIES ANY DISCOMFORT AT THIS TIME. FAMILY DENIES ANY SIGNS OF DISCOMFORT AT THIS TIME. PT HAS EDEMA IN LE'S 3+ PITTING. LUNGS DIMINISHED. WEAKNESS IN LE'S, SLIGHT WEAKNESS IN UE'S. ON RA. NO APPARENT SIGNS OF DISTRESS. CALL LIGHT IS IN REACH.
--- NOTE | 2020-01-17 22:25 | NUR ---
1930 PT LYING IN BED, EYES CLOSED, WAKES EASILY TO VERBAL STIMULI. NO APPARENT SIGNS OF DISTRESS. PT DENIES NEED FOR ANYTHING AT THIS TIME. FAMILY DENIES NEED FOR ANYTHING AT THIS TIME. CALL LIGHT IS IN REACH.
--- NOTE | 2020-01-18 00:33 | NUR ---
PT LYING IN BED, EYES CLOSED, APPEARS TO BE RESTING. BREATHING IS EVEN, UNLABORED. NO APPARENT SIGNS OF DISTRESS. CALL LIGHT IS IN REACH. FAMILY IS IN ROOM.
--- NOTE | 2020-01-18 04:55 | NUR ---
0200 PT LYING IN BED, EYES CLOSED, APPEARS TO BE RESTING. BREATHING IS EVEN, UNLABORED. NO APPARENT SIGNS OF DISTRESS. FAMILY IS IN ROOM. CALL LIGHT IS IN REACH.
--- NOTE | 2020-01-18 04:56 | NUR ---
PT IS LYING IN BED, EYES CLOSED, APPEARS TO BE RESTING. BREATHING IS EVEN, UNLABORED. NO APPARENT SIGNS OF DISTRESS. FAMILY IS IN ROOM. CALL LIGHT IS IN REACH.
--- NOTE | 2020-01-18 04:57 | NUR ---
PT IS MOSTLY AAO X 4, DENIED ANY DISCOMFORT FOR THIS SHIFT. FAMILY IS IN ROOM. ON RA.
--- NOTE | 2020-01-18 06:39 | NUR ---
PT LYING IN BED, EYES CLOSED, APPEARS TO BE RESTING. BREATHING IS EVEN, UNLABORED. NO APPARENT SIGNS OF DISTRESS. CALL LIGHT IS IN REACH. FAMILY IS IN ROOM. NO OTHER CHANGES THIS SHIFT.
--- NOTE | 2020-01-18 09:20 | NUR ---
AM ASSESSMENT- PT LYING BED, SON AT BEDSIDE. PT OPENS EYES TO VERBAL STIMULUS. PT REPORTS PAIN BUT UNABLE TO RATE OR DESCRIBE. 20MG PRN ROXANOL GIVEN. PT REPOSITIONED WITH PALLIATIVE CARE NURSE NORIS. PT NOTED TO HAVE SWELLING TO BUE, BLE, AND ABD. JAUNDICED T/O. PER SON PT ONLY TAKING SIPS OF FLUIDS AT THIS TIME, PT NO LONGER EATING. PALLIATIVE CARE RN SPEAKING TO PT REGARDING PÉREZ PLACEMENT AT THIS TIME. WILL CONT TO MONITOR.
--- NOTE | 2020-01-18 09:38 | NUR ---
Pt resting in bed upon arrival. Pt appears anxious, lethargic, and somnolent. Assisted Bedside ERICK Layne with repositioning, Pt painful during repositioning. Pt reports feeling the need to urinate but is painful with repositioning to use bedpan. Pt agreeable with Low catheter placement. Son Andrei at bedside and is agreeable with plan for Low placement. Engaged in therapeutic listening as Andrei reports plan to go home for some self care when other family arrives. Andrei reports no concerns at this time. Spoke with Bedside ERICK Layne, discussed case including plan for Low catheter placement. [facility] will offer comfort medications prior to catheter placement. Palliative Care will remain available for symptom management and supportive visits.
--- NOTE | 2020-01-18 10:00 | NUR ---
LATE ENTRY- PT ATTEMPTING TO GET OUT OF BED TO GO TO THE BATHROOM, PT IS TO WEAK TO GET OUT OF BED AT THIS TIME. NORIS FROM PALLIATIVE CARE SPOKE TO PT ABOUT PÉREZ PLACEMENT, PT DID AGREE TO GET PLACED. THIS RN WENT IN WITH ASSISTANCE TO PLACE PÉREZ CATHETER, PT VERY ANXIOUS AND IN PAIN, PRN ATIVAN AND ROXANOL GIVEN PRIOR. PT ANXIOUS TO GET PÉREZ PLACED AND AT TIMES REFUSING BUT DID END UP AGREEING FOR PLACEMENT. 14F PÉREZ PLACED WITH TURBID BROWN YELLOW URINE OUT.
[2020-01-18 10:20] LABS: Source, Urine Catheter
[2020-01-18 10:50] LABS: Blood, Urine 5+ (Neg); Glucose Qualitative, Urine Neg (Neg); Ketones, Urine 1+ (Neg); Leukocyte Esterase, Urine 3+ (Neg); Nitrite, Urine Pos (Neg); Protein, Urine 3+ (Neg); Urobilinogen, Urine 1+ (Normal)
[2020-01-18 10:51] LABS: Appearance, Urine Turbid (Clear); Bilirubin, Urine 1+ (Neg); Color, Urine Brown (P-Yellow)
[2020-01-18 10:54] LABS: Red Blood Cells, Urine 50-100 /hpf (0-2); White Blood Cells, Urine TNTC /hpf (0-5)
[2020-01-18 10:56] LABS: Amorphous Mod (0-Heavy); Bacteria Many /hpf; Squamous Epithelial Cells Few /hpf (Few); Transitional Epithelial Cells Few /hpf (0-Rare)
--- NOTE | 2020-01-18 11:10 | NUR ---
Ethics consult order received and processed. Chart notes and relevant statutory material reviewed, and conversations facilitated with [facility] stakeholders. Concerns were expressed regarding the hospitals right to preclude the principals from medical decision making in the event that the principal becomes disoriented, confused or fully incapacitated. We have multiple attestation on record that Alee strongly disfavors the idea of her having access to her private medical information, being afforded visitation privileges, or assuming decisional rights if she declines cognitively and can no longer speak for herself. In addition, to further address this worry, in accordance with ORS 127.520, the principal with her son's assistance and support has completed a document that disqualifies her from assuming the statutory privileges of ORS 127.635 even if she suffers the misfortune of incapcitation. Thank you for this consult. Eladio Thakur Th.D.
--- NOTE | 2020-01-18 15:45 | NUR ---
FAMILY CONCERNS- PT HAS HAD MULTIPLE DIFFERENT FAMILY MEMBERS IN TODAY. PT SON AT BEDSIDE THIS AM. AT ONE POINT SON LEFT AND PT'S MOTHER CAME IN WITH 2 OTHER VISITORS. THEY CALLED ME IN AND STATED THAT THE PT WAS REQUESTING FOR HER TO COME VISIT HER WHICH THIS RN WAS PREVIOUSLY TOLD THAT THE SPOUSE WAS NOT TO COME IN AND SEE PT. THEY ARE ADAMANT THAT THE PT WAS WANTING SPOUSE TO COME IN, I ASKED THE PT MYSELF IF SHE WANTED THE TO COME IN AND PT IS TO LETHARGIC TO MAKE THIS DECISION AND ONLY MOANED WHEN ASKED. FUNDS DEVELOPMENT DIRECTOR AYLIN CALLED SON WHO HAS BEEN MAKING THE DECISIONS AND REPORTED HE DID NOT WANT THE IN TO SEE THE PT. DURING THE MOTHER AND OTHER VISITOR STAY SOME FAMILY FROM OUT OF TOWN WAS HERE TO SEE PT, THE CURRENT VISITORS WERE ASKED TO LEAVE DUE TO THE AMOUNT OF VISITORS AND HOSPITAL POLICY. THE MOTHER DID LEAVE BUT DID END UP CALLING THE PT ADVOCATE AND CALLED BACK TO THE CHARGE NURSE AND REPORTED TO HER THAT SHE WAS LYING ABOUT OTHER VISITORS AND ENDED UP HANGING UP ON FUNDS DEVELOPMENT DIRECTOR. THIS RN AND FUNDS DEVELOPMENT DIRECTOR REVIEWED ETHICS CONSULT AND SPOKE WITH NURSING PASTE MIXER LIQUID. AT THIS TIME AT BEDSIDE IS PT'S TWO SONS. PT SON MARISSA DOES REPORT THAT IN THE PAST PT HAS NOT WANTED HER MOTHER AT BEDSIDE BUT HE REPORTS HE WILL ASK PT THE NEXT TIME SHE WAKES UP AND LETS US KNOW. I DID NOTIFY SON THAT NURSING STAFF CANNOT REGULATE WHO IS COMING TO SEE THE PT. AT THIS TIME PT REMAINS TO LETHARGIC TO MAKE DECISIONS.
--- NOTE | 2020-01-18 16:36 | NUR ---
SHIFT SUMMARY- PT COMFORT CARE PT. PT HAS BEEN LETHARIC T/O MOST OF THE AFTERNOON, PT ABLE TO WAKE UP AND ANSWER SOME QUESTIONS THIS AM. PT MEDICATED FOR PAIN AND X1 FOR ANXIETY PRIOR TO PÉREZ PLACEMENT. PÉREZ CATHETER PLACED FOR COMFORT, BROWN TURBID URINE OUT. PT JAUNDICED T/O. SWELLING TO BUE/ BLE/ AND ABD. PT NO LONGER EATING AND ONLY FEW SIPS OF FLUIDS T/O THE DAY. FAMILY ISSUES T/O THE DAY. AT THIS TIME PT HAS 2 SONS AT BEDSIDE. NO OTHER ACUTE CHANGES THIS SHIFT.
--- NOTE | 2020-01-18 17:41 | NUR ---
Spiritual care note: Alee was non-responsive and appeared to be sleeping peacefully. No indication of pain/stress. Family tired, but appropriate and calm. No concerns presented. Family satisfied with POC. I will remain available.
--- NOTE | 2020-01-19 01:44 | NUR ---
Patient very somnolent. difficult to wake. Lung sounds beginning to get more coarse in upper lobes on inspiration. Son Andrei and his are present in the room. Patient tolerates gently moving from side to side with vela pull sheet then a single pillow gently behind back. one pillow behind head and HOB [id number] degrees. will continue close monitoring and support.
--- NOTE | 2020-01-19 07:52 | NUR ---
Alee appears to be transitioning tonight. breathing is becoming agonal, and patient is no longer communicating with words. Son Andrei has been shown what kind of signs to look for indicating that his mother is having pain or anxiety.
--- NOTE | 2020-01-19 08:19 | NUR ---
AM ASSESSMENT- PT COMFORT CARE, SON AT BEDSIDE. SON REPORTED PT MOANING THIS AM, PRN ROXANOL GIVEN. PT APPEARS COMFORTABLE UPON MY ASSESSMENT, OPENS EYES SLIGHTLY BUT DOES NOT MAKE EYE CONTACT AND NO VERBAL RESPONSE. LS COARSE, ON RA. HRR. 3-4+ PITTING EDEMA T/O TO BLE/BUE/ AND ABD. PÉREZ IN PLACE DRIANING BROWN URINE. SON ASKING QUESTIONS REGARDING HOW LONG PT HAS LEFT AND REPORTS HE HAS NOTED A DIFFERENCE IN PT BREATHING. EDUCATED PT ON PROCESS. WILL CONT TO MONITOR.
--- NOTE | 2020-01-19 09:30 | NUR ---
Comfort Care Visit Spoke with Dr Arrington, Bedside RN [facility], and discussed case prior to Pt visit. Pt resting in bed with her eyes closed. Pt appears comfortable with no S/S of distress at this time. Constantino Forbes at bedside. Engaged in therapeutic listening and answered questions. Son Andrei reports family has arranged arrangements with [facility] when she passes. Andrei expresses appreciation of visit and reports no concerns at this time. Palliative Care will remain available for symptom management and supportive visits.
--- NOTE | 2020-01-19 14:28 | NUR ---
F/U Comfort Care Visit Pt resting in bed with her eyes closed. Pt non responsive and secretions noted. Son Andrei at bedside. Educated on the importance of reassuring Pt and talking with Pt. Spoke with Bedside RN [facility] and discussed case. Palliative Care will remain available.
--- NOTE | 2020-01-19 18:08 | NUR ---
SHIFT SUMMARY- PT HAS BEEN LETHARGIC T/O THE DAY, OPENS EYES SLIGHTLY BUT DOES NOT MAKE EYE CONTACT. PT MEDICATED T/O THE DAY FOR PAIN, ANXIETY X1. PT NOTED TO MOANS WITH REPOSITIONING AND OCCASIONAL LYING IN BED PER SON. SECRETIONS NOTED, ORAL SUCTIONING COMPLETED AND SCOPALAMINE PATCH APPLIED AND ATROPINE. PT REMAINS JAUNDICED T/O WITH PITTING EDEMA T/O. PÉREZ WITH MINIMAL OUTPUT OF BROWN URINE. PT SON AND MOTHER HAD AN ARGUMENT IN THE ROOM AT ONE POINT TODAY AND MOTHER WAS ASKED TO LEAVE BY HOSE TENDER, SON CONT TO REQUEST PT AND MOTHER NOT SEE PT PT PREVIOUSLY WISHED. PT APPEARS COMFORTABLE T/O THE DAY.
--- NOTE | 2020-01-20 07:39 | NUR ---
MAIL CENSOR SUMMARY Alee appeared comfortable most of the night. Son Andrei and his stayed overnight with her. Repositioning involved just shifting the Maharaj pad to change pressure points. Ativan concentrate from pharmacy worked better than disolving and ativan and giving it to her with a syringe. the added sustance made it easier for her to absorb. Other son from [place] is coming to the hospital this morning, my though tells me this is why she's holding on. Dark cola colored urine in the amount of approx 75 ml was her output for the shift
--- NOTE | 2020-01-20 12:25 | NUR ---
pt nonresponsive at 1140, checked for vitals, informed cn who informed pallative care who contacted family who declined to come in, cn is working on contacting the home, arrange pt ready for medicinal plant picker, sign up on door
--- NOTE | 2020-01-20 13:24 | NUR ---
while cleaning room found jar with 4 rings (two lucia 2 pewter) showed them to cn and placed them in belongings bag with clothes, pt still has stud errings in no other jewlery exept a friendship bracelet, cath and iv removed, pt cleaned and covered waiting for pickup
--- NOTE | 2020-01-20 14:10 | NUR ---
notified son of her passing, therputic grief support. Assisted him with cremation and funneral plan.
== END 2020-01-20 11:40 | DRG 872 ==
LOC: ER 15:03 → MEDS 15:04 → ER 17:11 → PCU 17:11 → MEDS 19:14 → PCU 20:17 → MEDS 01-13 14:32
PROVIDERS: Emergency Medicine; Internal Medicine; ADMIT Internal Medicine
DX: A41.9 Sepsis, unspecified organism (principal); E87.2 Acidosis; E87.1 Hypo-osmolality and hyponatremia; C78.7 Secondary malignant neoplasm of liver and intrahepatic bile duct; C78.00 Secondary malignant neoplasm of unspecified lung; D47.3 Essential (hemorrhagic) thrombocythemia; E88.09 Other disorders of plasma-protein metabolism, not elsewhere classified; E86.0 Dehydration; R74.01 Elevation of levels of liver transaminase levels; Z51.5 Encounter for palliative care; Z66 Do not resuscitate; R62.7 Adult failure to thrive; Z68.33 Body mass index [BMI] 33.0-33.9, adult; D63.8 Anemia in other chronic diseases classified elsewhere; C53.0 Malignant neoplasm of endocervix
CPT/HCPCS: 36415; 71260; 74177; 80053; 80202; 81001; 81025; 82607; 82728; 82746; 83540; 83550; 83605; 83735; 83880; 84100; 84145; 84484; 84702; 85025; 85610; 85730; 87040; 87086; 93005; 93010; 96365; 96375; 99285-25; A9270; J0696; J1170; J1650; J2405; J2543; J3370; J3480; J7030; J7050; Q9967